=== PATIENT | female | born 1985 | race Asian ===

== ENCOUNTER 2017-08-19 09:16 | Outpatient (CLI) | payer BC ==
--- NOTE | 2017-08-19 10:57 | ULT ---
OB ULTRASOUND: Date: 08/19/17 HISTORY: Size and dates. FINDINGS: A single live intrauterine gestation is seen with measurements corresponding to an estimated gestatio nal age of 18 weeks/1 day and PONCHO at 01/19/18. The estimated weight measures 221 gm, or 8 oz. measurements are as follows; BPD: 4.25 cm, 18 weeks/6 days HC: 15.39 cm, 18 weeks/3 days AC: 12.25 cm, 17 weeks/6 days FL: 2.65 cm, 18 weeks/0 days heart rate measures 139 beats/minute. GRACIE measures 14.5 cm. Placenta is anteriorly located with out evidence of placenta previa. Three vessel cord, cord insertion, kidneys, bladder, stomach, four chamber heart, lateral ventr icles, cerebellum, spine, lips/nose, upper/lower extremities are visualized. No definite anomal ies are seen. IMPRESSION: Single live intrauterine gestation of 18 weeks/1 day estimated gestational age and PONCHO at 01/19/18. POS: [facility]
== END 2017-08-19 09:17 | disposition home or self-care (01) ==
LOC: ULT 09:16
PROVIDERS: ATTEND Family Medicine
DX: Z34.92 Encounter for supervision of normal pregnancy, unspecified, second trimester (principal); Z3A.18 18 weeks gestation of pregnancy
CPT/HCPCS: 76805

== ENCOUNTER 2018-01-07 23:03 | Inpatient (IN) | payer BC ==
[2018-01-07 23:43] VITALS: BMI 26.6
[2018-01-08] MEDS ORDERED: Docusate 100 MG CAP PO PRN (00:25)
[2018-01-08] MEDS ORDERED: Ondansetron HCl/PF 4 MG/2 ML Vial IVP PRN ×3 (00:25→17:30)
[2018-01-08] MEDS ORDERED: Lidocaine 1% (PF) 30 ML VIAL SC PRN (00:25)
[2018-01-08] MEDS ORDERED: NS / Oxytocin 40 units/1000ml 1,000 ML IV PRN (00:25)
[2018-01-08] MEDS ORDERED: Butorphanol Tartrate 1 MG/ML VIAL SLOW IVP PRN (00:25)
[2018-01-08] MEDS ORDERED: HYDROcodone/Acetaminophen 5/325 mg Tablet PO PRN ×2 (00:25→17:30)
[2018-01-08] MEDS ORDERED: Misoprostol 200 MCG TAB PR PRN (00:25)
[2018-01-08] MEDS ORDERED: Ibuprofen 800 MG TAB PO PRN (00:25)
[2018-01-08] MEDS ORDERED: Promethazine HCl 25 MG/ML VIAL IM PRN ×2 (00:25→11:41)
[2018-01-08] MEDS ORDERED: Acetaminophen/Codeine 30-300mg Tablet PO PRN ×2 (00:25→17:30)
[2018-01-08] MEDS ORDERED: Acetaminophen 500 MG TAB PO PRN (00:25)
[2018-01-08] MEDS: Lactated Ringer's 1,000 ML IV SCH ×3 (00:30→19:31)
[2018-01-08] MEDS ORDERED: Penicillin G Potassium 5 MILL.UNITS in Sodium Chloride 0.9% 100 ML IVPB SCH (00:30)
[2018-01-08] MEDS ORDERED: DISCONTINUE ALL PREVIOUS NARCOTICS FS SCH (00:45)
[2018-01-08] MEDS ORDERED: Bupivacaine 0.5% 20 ML, fentaNYL Citrate/PF 400 MCG in Sodium Chloride 0.9% 72 ML EPIDURAL SCH (00:45)
[2018-01-08 01:04] LABS: Hemoglobin 13.8 g/dL (12.0-16.0); Mean Corpuscular HGB CONC 35.4 g/dL (32.0-36.0); Mean Corpuscular Volume 93.3 fL (78.0-98.0); Mean Platelet Volume 8.6 fL (7.4-10.4); Platelet Count 192 thou/uL (130-400); RBC Distribution Width 12.1 % (11.5-14.5); Red Blood Cell (RBC) Count 4.19 mill/uL (4.20-5.40)
[2018-01-08 01:29] LABS: Syphilis Antibody Nonreactive (Nonreactive); Syphilis Antibody Index 0.03 S/CO (<1.00 Non-Reactive)
[2018-01-08 01:30] LABS: HBSAg Index 0.31 S/CO (0-0.99); Hep B Surf Ag Non-Reactive S/CO (NonReactive)
[2018-01-08] MEDS ORDERED: Bupivacaine/Epinephrine 0.25% 30 ML VIAL ONE (04:00)
[2018-01-08] MEDS ORDERED: NS w/ Oxytocin 10 units 500 ML ONE (04:58)
[2018-01-08] MEDS: Penicillin G 2.5 MILL.units 2.5 MILL.UNITS in Premix Bag 1 BAG IVPB SCH ×5 (05:10→19:32)
[2018-01-08] MEDS ORDERED: Lactated Ringer's 500 ML IV PRN (11:41)
[2018-01-08] MEDS ORDERED: ePHEDrine/0.9% NaCl/PF SYRINGE 50 mg/10 ml SLOW IVP PRN (11:41)
[2018-01-08] MEDS ORDERED: Eucerin (Mineral Oil/Petrolatum,White) 30 gm Jar TOP PRN (11:41)
[2018-01-08] MEDS ORDERED: Acetaminophen 325 MG TAB PO PRN (11:41)
[2018-01-08] MEDS ORDERED: diphenhydrAMINE 50 MG/ML VIAL IVP PRN (11:41)
[2018-01-08] MEDS ORDERED: Naloxone HCl 0.4 mg/ml Vial IVP PRN ×2 (11:41)
[2018-01-08] MEDS ORDERED: Communication Order-Pharmacy FS SCH (11:45)
[2018-01-08] MEDS ORDERED: fentaNYL Citrate/PF 400 MCG, Bupivacaine 0.5% 20 ML in Sodium Chloride 0.9% 72 ML EPIDURAL SCH (11:45)
[2018-01-08] MEDS ORDERED: Milk Of Magnesia 30 ML UDCUP PO PRN (17:30)
[2018-01-08] MEDS ORDERED: Lanolin Ointment 7 GM TUBE TOP PRN (17:30)
[2018-01-08] MEDS ORDERED: Preparation H Ointment 28 GM TUBE PR PRN (17:30)
[2018-01-08] MEDS ORDERED: diphenhydrAMINE 25 MG CAP PO PRN (17:30)
[2018-01-08] MEDS ORDERED: Bisacodyl 10 MG SUPP PR PRN (17:30)
[2018-01-08] MEDS ORDERED: NS / Oxytocin 40 units/1000ml 1,000 ML IV SCH (17:30)
[2018-01-08] MEDS ORDERED: Benzocaine/Menthol 20-0.5% 60 ML CAN TOP PRN (17:30)
[2018-01-08] MEDS: Docusate Calcium (SURFAK) 240 MG CAP PO SCH ×2 (19:32→19:46)
[2018-01-08] MEDS: Ferrous Sulfate 325 MG TAB PO SCH (19:32)
[2018-01-08] MEDS: Prenatal Vitamin 1 TAB PO SCH (19:34)
[2018-01-08] MEDS: Ibuprofen 800 MG TAB PO SCH ×2 (19:34→19:46)
[2018-01-09] MEDS: Ibuprofen 800 MG TAB PO SCH ×3 (05:20→21:44)
[2018-01-09] MEDS: Docusate Calcium (SURFAK) 240 MG CAP PO SCH ×2 (08:32→21:45)
[2018-01-09] MEDS: Prenatal Vitamin 1 TAB PO SCH (08:32)
[2018-01-09] MEDS: Ferrous Sulfate 325 MG TAB PO SCH ×2 (08:35→16:46)
[2018-01-09 20:52] VITALS: TEMP 98.3
[2018-01-10] MEDS: Ibuprofen 800 MG TAB PO SCH (05:44)
[2018-01-10 08:19] VITALS: BP 139/80
[2018-01-10] MEDS: Ferrous Sulfate 325 MG TAB PO SCH (09:10)
[2018-01-10] MEDS: Prenatal Vitamin 1 TAB PO SCH (09:11)
[2018-01-10] MEDS: Docusate Calcium (SURFAK) 240 MG CAP PO SCH (09:11)
== END 2018-01-10 11:15 | disposition home or self-care (01) | DRG 775 ==
LOC: L&D/OP 23:03 → L&D 01-08 00:16 → 3SW 01-08 18:19
PROVIDERS: ADMIT Family Medicine; ATTEND Family Medicine
PROC: 10E0XZZ Delivery of Products of Conception, External Approach (ICD-10-PCS; principal; 2018-01-08)
PROC: 0HQ9XZZ Repair Perineum Skin, External Approach (ICD-10-PCS; 2018-01-08)
DX: O70.0 First degree perineal laceration during delivery (principal); Z3A.39 39 weeks gestation of pregnancy; Z37.0 Single live birth
CPT/HCPCS: 85027; 86780; 86850; 86900; 86901; 87340; J2001; J2405; J2540; J3010; J3490; J7050